=== PATIENT | male | born 1980 | race African-American/Black ===

== ENCOUNTER 2018-12-08 14:46 | Emergency (ER) | payer OTHER ==
[~2018-12-08] VITALS: Ht 185.4 cm; Wt 115.7 kg
[2018-12-08] MEDS ORDERED: VITAMIN D400 INTLU ORAL (14:57)
--- NOTE | 2018-12-08 15:00 | NUR ---
ED Nurse Note: Pt has been having bilateral earche x 3 days, more on L side, stated to feel pressure. Pain rated 9/10. Has hx of ear infection. AOx4, VSS. Will cont to monitor.
--- NOTE | 2018-12-08 15:04 | Emergency Room Report ---
History of Present Illness General Chief Complaint: Earache Source: Patient Present Illness HPI Patient is a 38-year-old male presented after increased bilateral ear fullness. He reports having predominant symptoms to the left side. Reports having some increased clicking to the left side of his jaw. He states that he had prior history of ear infections. He denies any recent trauma. He states he previously been told not to use Q-tips. He had previous episodes of infection after using Debrox. Allergies: Coded Allergies: No Known Allergies (Unverified , 12/08/18) Patient History Past Medical History: see triage record Reviewed Nursing Documentation: PMH: Agreed; PSxH: Agreed Nursing Documentation-PMH Past Medical History: No History, Except For Review of Systems All Other Systems: negative except mentioned in HPI Physical Exam Vital Signs Date Time Temp Pulse Resp B/P (MAP) Pulse Ox O2 Delivery O2 Flow Rate FiO2 12/08/18 14:52 98.2 80 20 141/90 (107) 96 Room Air General Appearance: well appearing, no apparent distress, alert, GCS 15 Head: normocephalic, atraumatic ENT: hearing grossly normal, normal voice, other - bilateral large solid cerumen impaction Neck: full range of motion, supple Respiratory: no respiratory distress, speaking full sentences Cardiovascular #1: normal inspection, normal peripheral pulses, regular rate, rhythm Gastrointestinal: normal inspection, non tender Musculoskeletal: normal inspection, no calf tenderness Neurologic: normal inspection, alert, oriented x3, responsive, scrap collector III-XII nml as tested, motor strength/tone normal, normal gait Psychiatric: mood/affect normal Skin: no rash Medical Decision Making Diagnostic Impression: Primary Impression: Bilateral impacted cerumen ER Course Presented for bilateral earache. Differential diagnosis include was not limited to cerumen impaction, otitis media, TMJ arthritis, among others. Patient has a benign exam and does not appear to require any further imaging or laboratory testing at this time. Patient appears to have bilateral cerumen impaction. Patient's ears were initially irrigated with minimal results. Bilateral large solid cerumen was removed with a curette. Patient tolerated this well. There is no bleeding noted afterward. Patient said he felt better. He was advised to follow-up with ENT for further cleanings as needed. Last Vital Signs Date Time Temp Pulse Resp B/P (MAP) Pulse Ox O2 Delivery O2 Flow Rate FiO2 12/08/18 14:52 98.2 80 20 141/90 (247) 96 Room Air Status: improved Disposition: HOME, SELF-CARE Condition: Stable Naun Michel MD Dec 08, 2018 15:04
[2018-12-08 15:25] VITALS: BP 132/88
[2018-12-08 15:35] VITALS: BP 132/88
--- NOTE | 2018-12-08 15:35 | NUR ---
ER DISCHARGE NOTE: Patient is cleared to be discharged per ERMD, pt is aox4, on room air, with stable vital signs. pt was given dc and prescription instructions, pt was able to verbalize understanding, pt id band removed. pt is able to ambulate with steady gait. pt took all belongings.
== END 2018-12-08 15:35 | disposition home or self-care (01) ==
LOC: EMR 15:20
DX: H61.23 Impacted cerumen, bilateral (principal)
CPT/HCPCS: 99281